=== PATIENT | male | born 2000 | race Caucasian/White ===

== ENCOUNTER 2024-01-03 17:10 | Emergency (ER) | payer OTHER, SELFPAY ==
--- NOTE | ~2024-01-03 | XR_ITS ---
EXAMINATION: XR foot RT min 3V (accession [id number]), XR ankle RT min 3V (accession [id number]) CLINICAL INFORMATION: medial foot pain COMPARISON: None. TECHNIQUE: Three views of the right foot and 2 views of the right ankle FINDINGS: * Diffuse osteopenia likely secondary to disuse, somewhat limits evaluation. Degenerative changes with Hammer toe deformities of the second through fifth toes. Distal tibial and fibular orthopedic hardware without definite evidence of hardware complication. reflect * No soft tissue abnormality. XR/XR foot RT min 3V IMPRESSION: * Diffuse osteopenia likely secondary to disuse, somewhat limits evaluation. No definite fracture. * Distal tibial and fibular orthopedic hardware without definite evidence of hardware complication. Electronically signed by: Mary Pineda MD 01/03/2024 07:45 PM EDT
--- NOTE | ~2024-01-03 | XR_ITS ---
EXAMINATION: XR foot RT min 3V (accession [id number]), XR ankle RT min 3V (accession [id number]) CLINICAL INFORMATION: medial foot pain COMPARISON: None. TECHNIQUE: Three views of the right foot and 2 views of the right ankle FINDINGS: * Diffuse osteopenia likely secondary to disuse, somewhat limits evaluation. Degenerative changes with Hammer toe deformities of the second through fifth toes. Distal tibial and fibular orthopedic hardware without definite evidence of hardware complication. reflect * No soft tissue abnormality. XR/XR ankle RT min 3V IMPRESSION: * Diffuse osteopenia likely secondary to disuse, somewhat limits evaluation. No definite fracture. * Distal tibial and fibular orthopedic hardware without definite evidence of hardware complication. Electronically signed by: Mary Pineda MD 01/03/2024 07:45 PM EDT
[2024-01-03 17:24] VITALS: BP 139/51; PULSE 91; RESP 18; TEMP 37.1; O2SAT 97; BMI 23.6
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
[2024-01-03 22:47] VITALS: BP 135/72; PULSE 88; RESP 16; TEMP 36.4; O2SAT 100
[2024-01-03 23:16] LABS: MANUAL DIFF FLAG NO
[2024-01-03 23:17] LABS: Basophils Absolute Auto 0.1 X10*3/uL (0.0-0.2); Basophils Percent Auto 0.4 % (0-2); Eosinophils Absolute Auto 0.3 X10*3/uL (0.0-0.4); Eosinophils Percent Auto 2.3 % (0-4); Hemoglobin 14.2 g/dl (14.0-18.0); Imm Gran Abs Auto 0.04 X10*3/uL (0.00-0.03); Imm Gran Pct Auto 0.3 % (0.0-0.4); Lymphocytes Absolute Auto 1.5 X10*3/uL (1.2-4.9); Lymphocytes Percent Auto 12.6 % (20-40); Mean Corpuscular HGB Conc 32.3 g/dl (31.0-36.0); Mean Corpuscular Hemoglobin 25.9 pg (27.0-33.0); Mean Corpuscular Volume 80.3 fL (80.0-98.0); Mean Platelet Volume 9.9 fL (9.4-12.4); Monocytes Absolute Auto 0.9 X10*3/uL (0.1-1.2); Neutrophils Absolute Auto 8.9 x10*3/uL (2.0-8.3); Neutrophils Percent Auto 76.4 % (45-73); Platelet Count 304 X10*3/uL (160-400); Red Blood Count 5.48 X10*6/uL (4.60-5.80); Red Cell Distribution Width 15.7 % (11.0-16.0); White Blood Count 11.7 X10*3/uL (4.8-10.8)
[2024-01-03 23:29] LABS: Anion Gap 11 (12-20); Blood Urea Nitrogen 12 mg/dL (9-16); C Reactive Protein 4.15 mg/dL (< or = 0.50); Calcium 8.6 mg/dL (8.4-10.2); Carbon Dioxide 29 mmol/L (22-29); Chloride 104 mmol/L (96-108); Creatinine Clr Calc Pharmacy 119.2; Estimated Glomerular Filt Rate > 60; Glucose Random 97 mg/dL (60-115); Potassium 3.8 mmol/L (3.3-5.1); Sodium 140 mmol/L (135-145)
[2024-01-03 23:51] LABS: Erythrocyte Sedimentation Rate 12 MM/HR (0-15)
[2024-01-04 00:26] VITALS: BP 132/62; PULSE 75; RESP 16; TEMP 37; O2SAT 97
[2024-01-04] MEDS: Ketorolac Tromethamine 30 MG/ML VIAL IVPUSH (00:33)
[2024-01-04 00:38] VITALS: BP 132/62; PULSE 75; RESP 16; TEMP 37; O2SAT 97
== END 2024-01-04 00:39 | disposition home or self-care (01) ==
PROVIDERS: Emergency Provider Emergency Medicine
DX: M19.071 Primary osteoarthritis, right ankle and foot (principal); M25.571 Pain in right ankle and joints of right foot; M79.671 Pain in right foot; Z79.899 Other long term (current) drug therapy
CPT/HCPCS: 36415; 73610; 73630; 80048; 85025; 85652; 86140; 96374; 99284; J1885

== ENCOUNTER 2024-01-15 11:33 | Emergency (ER) | payer OTHER, SELFPAY ==
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
--- NOTE | ~2024-01-15 | US_ITS ---
EXAMINATION: US TRIPLEX LOWER EXTREMITY, RIGHT CLINICAL INFORMATION: Right leg swelling COMPARISON: None available. TECHNIQUE: Color-flow triplex imaging with spectral analysis and compression Doppler were performed on the right lower extremity. FINDINGS: Respiratory variation, normal compression and augmented flow are noted throughout the right lower extremity. The visualized common femoral vein, superficial femoral vein, profunda femoral vein, popliteal vein and midcalf peroneal and posterior tibial venous segments show no evidence of deep venous thrombosis. There is no Castillo's cyst. There are right groin lymph nodes measuring 3.8 and 2.0cm. US/US venous duplex LE RT IMPRESSION: 1. No evidence of deep venous thrombosis involving the right lower extremity. 2. Right groin lymph nodes. Electronically signed by: Ansley Velasquez MD 01/15/2024 02:53 PM EDT
[2024-01-15 11:38] VITALS: BP 129/58; PULSE 67; RESP 16; TEMP 36.7; O2SAT 98; BMI 24.0
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
[2024-01-15 12:08] LABS: MANUAL DIFF FLAG NO
[2024-01-15 12:11] LABS: Basophils Absolute Auto 0.1 X10*3/uL (0.0-0.2); Basophils Percent Auto 0.5 % (0-2); Eosinophils Absolute Auto 0.1 X10*3/uL (0.0-0.4); Eosinophils Percent Auto 0.5 % (0-4); Hematocrit 48.1 % (42.0-52.0); Hemoglobin 15.7 g/dl (14.0-18.0); Imm Gran Abs Auto 0.02 X10*3/uL (0.00-0.03); Imm Gran Pct Auto 0.2 % (0.0-0.4); Lymphocytes Absolute Auto 1.3 X10*3/uL (1.2-4.9); Lymphocytes Percent Auto 13.1 % (20-40); Mean Corpuscular HGB Conc 32.6 g/dl (31.0-36.0); Mean Corpuscular Hemoglobin 25.8 pg (27.0-33.0); Mean Corpuscular Volume 79.1 fL (80.0-98.0); Mean Platelet Volume 10.2 fL (9.4-12.4); Monocytes Absolute Auto 0.6 X10*3/uL (0.1-1.2); Monocytes Percent Auto 5.8 % (2-11); Neutrophils Absolute Auto 7.9 x10*3/uL (2.0-8.3); Neutrophils Percent Auto 79.9 % (45-73); Platelet Count 331 X10*3/uL (160-400); Red Blood Count 6.08 X10*6/uL (4.60-5.80); Red Cell Distribution Width 15.9 % (11.0-16.0); White Blood Count 9.9 X10*3/uL (4.8-10.8)
[2024-01-15 12:25] LABS: Alanine Aminotransferase 20 U/L (0-40); Albumin Level 4.3 g/dL (3.5-5.0); Alkaline Phosphatase 81 U/L (39-117); Anion Gap 12 (12-20); Aspartate Amino Transferase 17 U/L (5-37); Bilirubin Total 0.5 mg/dL (0.0-1.0); Blood Urea Nitrogen 16 mg/dL (9-16); C Reactive Protein 2.22 mg/dL (< or = 0.50); Calcium 9.7 mg/dL (8.4-10.2); Carbon Dioxide 30 mmol/L (22-29); Chloride 107 mmol/L (96-108); Estimated Glomerular Filt Rate > 60; Glucose Random 82 mg/dL (60-115); Potassium 4.2 mmol/L (3.3-5.1); Sodium 145 mmol/L (135-145); Total Protein 8.2 g/dL (6.5-8.0)
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
[2024-01-15 12:49] LABS: Erythrocyte Sedimentation Rate 7 MM/HR (0-15)
[2024-01-15 16:04] VITALS: BP 129/58; PULSE 67; RESP 16; TEMP 36.7; O2SAT 98
[2024-01-15 16:09] VITALS: BP 129/58; PULSE 67; RESP 16; TEMP 36.7; O2SAT 98
== END 2024-01-15 16:10 | disposition home or self-care (01) ==
PROVIDERS: Registered Nurse Emergency; Emergency Provider Student in an Organized Health Care Education/Training Program
DX: M25.471 Effusion, right ankle (principal); M19.071 Primary osteoarthritis, right ankle and foot; M79.661 Pain in right lower leg
CPT/HCPCS: 36415; 73610; 80053; 85025; 85652; 86140; 93971; 99283; 99284